=== PATIENT | female | born 1960 | race Caucasian/White ===

== ENCOUNTER 2016-10-03 07:54 | Day surgery (SDC) | payer BC ==
[~2016-10-03 07:54] MED LIST: ACETAMINOPHEN 1000MG/100 ML PREMIX IV ONE
[2016-10-03] MEDS ORDERED: BUPIVACAINE 0.25% MPF 30ML VIAL IVP ONE (13:47)
[2016-10-03] MEDS ORDERED: BETAMETHASONE 6 MG/1 ML 5ML VIAL IM ONE (13:47)
[2016-10-03] MEDS ORDERED: HYDROCODONE/APAP 7.5/325MG TABLET PO ONE (13:47)
[2016-10-03] MEDS ORDERED: PROPOFOL 10 MG/ML VIAL IV ONE (15:42)
[2016-10-03] MEDS ORDERED: FENTANYL PF 100MCG/2ML VIAL IV ONE (15:42)
[2016-10-03] MEDS ORDERED: ONDANSETRON HCL IV 4 MG/2 ML VIAL IVP ONE (15:42)
[2016-10-03] MEDS ORDERED: LIDOCAINE 2% MDV (20MG/ML) 20ML VIAL IV ONE (15:42)
[2016-10-03] MEDS ORDERED: SEVOFLURANE 250 ML INH ONE (15:42)
[2016-10-03] MEDS ORDERED: MIDAZOLAM HCL 2MG/2ML VIAL IV ONE (15:42)
[2016-10-03] MEDS ORDERED: KETOROLAC 30 MG/ML VIAL IVP ONE (15:42)
[2016-10-03] MEDS ORDERED: CEFAZOLIN 2 Gram 50 ML IVPB ONE (15:52)
--- NOTE | 2016-10-04 13:40 | Operative Note ---
DATE OF SURGERY: 10/03/2016 SURGEON: Francisco Finn DO REFERRING PHYSICIAN: Varun Craig DO PREOPERATIVE DIAGNOSES: 1. Right trigger thumb. 2. Soft tissue mass right thumb. 3. Osteoarthritis right knee. POSTOPERATIVE DIAGNOSES: 1. Right trigger thumb. 2. Osteophyte proximal phalanx of the right thumb. 3. Osteoarthritis right knee. OPERATION: 1. Tenotomy A1 hailey right thumb. 2. Excision of osteophyte of the proximal phalanx of the right thumb. 3. Injection right knee. Anesthesia: General. PROCEDURE: This 55-year-old female was taken to the operating room and placed in the supine position on the operating room table. General anesthesia was induced and the right knee was prepped with Betadine and a 22 gauge spinal needle was used to inject 2 mL of and 2 mL of 0.25% Marcaine plain, and a sterile bandage was applied. We then directed our attention to the right thumb and the right upper extremity was elevated, prepped with Hibiclens and draped in the usual sterile fashion, exsanguinated, and the tourniquet inflated to 250 mmHg. An incision was made in the flexor crease of the MCP joint of the right thumb and dissection was carried down through the skin and subcutaneous tissue. The proximal edge of the A1 hailey was easily identified and then with the entire hailey under direct vision, it was incised along its ventral border and the FPL completely exposed. The thumb was flexed to be sure there was no catching or locking. The tendon passed freely, and the wound was irrigated with lactated Ringer's solution. The wound closed with interrupted 6-0 nylon suture. Then, on the radial aspect of the right thumb, we made a longitudinal incision. This incision in the midline was carried down through the skin and subcutaneous tissue. We could palpate a mass on the radial aspect of the thumb and this was carried down to the joint capsule. We could see that this was below the joint capsule and subsequently the capsular incision was made and the capsule subperiosteally elevated off of the volar ulnar aspect of the distal phalanx to expose an osteophyte. This was then removed utilizing a rongeur, and we felt that this satisfactorily took care of the size of this mass. We also searched the subcutaneous tissues extensively for any ganglion, and nothing further was identified in that location. The wound was irrigated with lactated Ringer's solution and the joint capsule reapproximated with 4-0 Vicryl, and the skin closed with interrupted 6-0 nylon sutures. Sterile dressings were applied. The patient taken to the recovery room in satisfactory condition. GROSS PATHOLOGY: This patient had osteoarthritis of the right knee which is longstanding, and is well known. The patient had triggering of the right thumb with nodularity of the FPL, some excoriation and degeneration of the FPL tendon , some fraying of this tendon was identified. The patient also demonstrated an osteophyte of the volar ulnar aspect of the distal phalanx of the right thumb, creating a mass effect. This was removed in the manner described above. SINDI
== END 2016-10-03 11:10 | disposition home or self-care (01) ==
LOC: SUR 07:54
PROVIDERS: ATTEND Orthopaedic Surgery
DX: M65.311 Trigger thumb, right thumb (principal); M25.741 Osteophyte, right hand; M17.11 Unilateral primary osteoarthritis, right knee
CPT/HCPCS: 26055; 26160; 20610; 01810; J1885; J2405; J3010; J0690

== ENCOUNTER 2017-01-23 16:00 | Inpatient (IN) | payer BC ==
[2017-02-01] MEDS ORDERED: MECLIZINE 25 MG TABLET PO ONE (06:00)
[2017-02-01] MEDS ORDERED: FAMOTIDINE 20MG TABLET PO ONE (06:00)
[2017-02-01] MEDS ORDERED: ACETAMINOPHEN 1,000 MG/100 ML BTL IV ONE (06:00)
[2017-02-01] MEDS ORDERED: CLINDAMYCIN 600MG/50ML PREMIX 600 MG/50 ML BAG IVPB ONE (06:00)
[2017-02-01] MEDS ORDERED: METOCLOPRAMIDE 10 MG TABLET PO ONE (06:00)
[2017-02-01] MEDS ORDERED: TRAMADOL HCL 50 MG TABLET PO PRN ×2 (11:01)
[2017-02-01] MEDS ORDERED: ONDANSETRON HCL IV 4 MG/2 ML VIAL IVP PRN (11:01)
[2017-02-01] MEDS ORDERED: OXYCODONE HCL 5 MG TABLET PO PRN (11:01)
[2017-02-01] MEDS ORDERED: METOCLOPRAMIDE HCL 10 MG/2 ML VIAL IVP PRN (11:01)
[2017-02-01] MEDS ORDERED: AL HYDROX/MAG HYDROX 30ML UD PO PRN (11:01)
[2017-02-01] MEDS ORDERED: OXYCODONE/APAP 7.5MG/325MG TABLET PO PRN (11:01)
[2017-02-01] MEDS ORDERED: ZOLPIDEM TARTRATE 5 MG TABLET PO PRN (11:01)
[2017-02-01] MEDS ORDERED: MAGNESIUM HYDROXIDE 30 ML UDC PO PRN (11:01)
[2017-02-01] MEDS ORDERED: RINGERS SOLUTION,LACTATED 1,000 ML IV PRN (11:01)
[2017-02-01] MEDS ORDERED: DIPHENHYDRAMINE HCL 25 MG CAPSULE PO PRN (11:01)
[2017-02-01] MEDS ORDERED: TRANEXAMIC ACID 1,000 MG in 0.9 % SODIUM CHLORIDE 100ML 100 ML IV ONE (11:23)
[2017-02-01] MEDS ORDERED: LORAZEPAM 0.5 MG TABLET PO ONE (11:30)
[2017-02-01] MEDS ORDERED: PATIENT OWN MED: PO SCH (11:30)
[2017-02-01] MEDS ORDERED: CALCIUM CARBONATE 500 MG TAB.CHEW PO PRN (11:30)
[2017-02-01] MEDS ORDERED: ALBUTEROL HFA 8 GM INHALER INH PRN (11:30)
[2017-02-01] MEDS: SODIUM CHLORIDE IVPB SCH ×2 (13:17→22:17)
[2017-02-01] MEDS: ACETAMINOPHEN IVPB SCH ×2 (13:17→22:17)
[2017-02-01] MEDS ORDERED: BUPIVACAINE 0.25% W/EPI MPF 30ML VIAL IVP ONE (13:26)
[2017-02-01] MEDS ORDERED: BUPIVACAINE LIPOSOME 266MG/20ML VIAL IV ONE (13:26)
[2017-02-01] MEDS ORDERED: 0.9 % SODIUM CHLORIDE 100ML BAG IV ONE (13:26)
[2017-02-01] MEDS ORDERED: TRANEXAMIC ACID 1,000 MG/10 ML ML IV ONE (13:26)
[2017-02-01] MEDS: HYDROMORPHONE HCL 1 MG/ML CPJ IVP PRN ×3 (14:05→21:49)
[2017-02-01] MEDS ORDERED: LIDOCAINE 2% MDV (20MG/ML) 20ML VIAL IV ONE (14:23)
[2017-02-01] MEDS ORDERED: DIPHENHYDRAMINE HCL IV 50 MG/ML VIAL IVP ONE (14:23)
[2017-02-01] MEDS ORDERED: PROPOFOL 10 MG/ML VIAL IV ONE (14:23)
[2017-02-01] MEDS ORDERED: MIDAZOLAM HCL 2MG/2ML VIAL IV ONE (14:23)
[2017-02-01] MEDS ORDERED: FENTANYL PF 100MCG/2ML VIAL IV ONE (14:23)
[2017-02-01] MEDS: OXYCODONE HCL 5 MG TABLET PO PRN (15:46)
[2017-02-01] MEDS: CLINDAMYCIN 600MG/50ML PREMIX 600 MG/50 ML BAG IVPB SCH (16:03)
--- NOTE | 2017-02-01 16:19 | Rehab Evaluation ---
Patient Information - Patient Information Diagnosis: R Knee OA Ordered Treatment: PT Evaluate and Treat Status: Initial Evaluation Surgery: Yes (R TKA) Date of Surgery: 02/01/17 History: Detail (Pt. reports history of knee arthritis and pain. Pt. reports slowly progressive worsening of sx.) Past Med/Jose Daniel Hx Detail: Detail (Pt. reports L knee TKA ~1 year ago. Pt. reports R carpal tunnel release ~1 year ago. Please see attached PMH forms.) Past Medical/Surgical Hx: PAST MEDICAL/SURGICAL HISTORY Past Surgical History CTR hysterectomy; cholecystectomy; bilat knee scope; tonsillectomy; dequervains left wrist; arthroscopy left RTC repair ; left total knee 01-27-16; trigger thumb release10/03/16. PMH - Respiratory Hx Respiratory Disorders Yes Hx Asthma Yes Comment: hx sinus problems PMH - Cardiovascular Hx Cardiovascular Disorders No Hx Hypertension Yes: "whitecoat syndrome"-on no meds Exercise Tolerance Good Hx of Migraines Yes: monthly Comment: due to knee pain PMH - Neuro Hx Neurological Disorders Yes Hx Headaches Yes Hx Neuropathy Yes: left great toe numb since other total knee PMH - GI Hx Gastrointestinal Disorders Yes Hx Gastroesophageal Reflux Yes Hx Irritable Bowel Yes PMH - Hx Genitourinary Disorders No Hx Bladder Problem Yes: stress incontinence Comment: Hyst PMH - Endocrine Hx Endocrine Disorders No PMH - Musculoskeletal Hx Musculoskeletal Disorders Yes Hx Arthritis Yes: knees and hands Comment: wrist surgery PMH - Psych Hx Psychiatric Problems Yes Hx Anxiety Yes PMH - Hematology/Oncology Hx Hematology/Oncology Yes Disorders Hx Anemia Yes Premorbid Status: Detail (Pt. reports worsening of sx for the past year.) Social History: Detail (Pt. lives in a two story home with bathroom and bedroom located on the first floor. Pt. has 4 steps leading into the home with hand rail on the right when ascending. 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 Pt. has a grab bar in the shower, has access to front wheeled walker , and prefers to use her axillary crutches. Pt. lives at home with who is able to provide support.) Precautions: [place], Fall - Time With Patient Total Time Spent With Patient (Min): 35 Treatment Procedures: Detail (PT eval completed. Pt. was left supine with call light available, B IPC, cryo RLE, nursing was notified of pt.'s status.) Subjective Information - Subjective Information Per Patient (Pt. reported 5/10 pain at start of evaluation. Pt. denied SOB/ nausea, but did express some drowziness "secondary to benadryl".) Objective Data - Pain Pain Present: Yes Pain Scale Used: Numeric (1 - 10) - Mental Status Patient Orientation: Oriented x3 - Visual Perception Appears within normal limits for therapeutic activities - ROM Not within normal limits (R knee flexion limited due to pain. CPM set to 60 degrees flexion and 0 degrees extension. LLE within functional limits, as well as B hips.) - Strength/Tone Not within normal limits (Break testing not tolerated at the RLE due to pain. LLE within functional limits for safe transfer. BUE strength functional for bed mobility and transfers.) - Coordination Appears within normal limits for therapeutic activities - Bed Mobility Needs Assist (Pt. required assistance with positioning of the operative LE due to inability to perform SLR.) - Transfers Needs Assist (Pt. required min assist x1 to perform stand to sit transfer to bed and to perform stand<->sit from commode.) - Balance Balance Sitting: Good Balance Standing: Fair - Sensation Intact - Gait Detail (Not assessed due to standing at bedside orders.) - ADL's/IADL's Detail (Not assessed.) - Special Tests No Therapy Assessment - Therapy Assessment Detail (Pt. exhibits LE ROM and strength deficits secondary to knee replacement surgery. She is a good candidate to transition to home environment following inpatient stay after goal completion.) Patient Education - Patient Education Teaching Topic: Equipment Use, Precautions Response: Verbalize Understanding Teaching Method: Discussion Teaching Recipient: Patient Barriers To Learning: None Problem List - Problem List Physical Therapy Problem List: Detail (1) LE weakness 2) LE ROM restriction 3) Pt. not independent with bed mobility/transfers 4) Inability to assess ambulation) Goals - Goals Physical Therapy Goals: 1) Pt. will ambulate household distances independently with AD and will not demonstrate deviation from midline. 2) Pt. will be independent with bed mobility and transfers. 3) Pt. will verbalize understanding of precautions. 4) Pt. will be independent with the home program. 5) Pt. will ascend and descend 4 steps independently with AD for safe return to home environment. Prognosis - Prognosis Good (Pt. is expected to complete inpatient PT goals and D/C to home environment.) Plan - Plan Physical Therapy Plan: Pt. will be seen 1-2x per day for inpatient PT until goals have been achieved.
[2017-02-01] MEDS: FONDAPARINUX 2.5 MG/0.5 ML SYR SQ SCH (16:33)
[2017-02-01] MEDS: POLYETHYLENE GLY 17 GM PACKET PO SCH (22:30)
[2017-02-01] MEDS ORDERED: RIZATRIPTAN 10 MG PO PRN (22:30)
[2017-02-02] MEDS: CLINDAMYCIN 600MG/50ML PREMIX 600 MG/50 ML BAG IVPB SCH ×2 (00:17→07:01)
[2017-02-02] MEDS: OXYCODONE HCL 5 MG TABLET PO PRN (00:49)
[2017-02-02] MEDS: HYDROMORPHONE HCL 1 MG/ML CPJ IVP PRN ×2 (02:49→10:51)
[2017-02-02] MEDS: ACETAMINOPHEN IVPB SCH (03:41)
[2017-02-02] MEDS: SODIUM CHLORIDE IVPB SCH (03:41)
[2017-02-02 06:35] LABS: HEMATOCRIT 34.7 % (35.0-47.0); HEMOGLOBIN 10.7 gm/dl (11.6-16.0)
[2017-02-02] MEDS: OXYCODONE/APAP 7.5MG/325MG TABLET PO PRN ×2 (07:05→15:21)
[2017-02-02] MEDS ORDERED: LORATADINE 10 MG TABLET PO SCH (10:00)
[2017-02-02] MEDS ORDERED: SENNOSIDES/DOCUSATE SODIUM UD CAPSULE PO SCH (10:00)
[2017-02-02] MEDS: POLYETHYLENE GLY 17 GM PACKET PO SCH (10:49)
[2017-02-02] MEDS ORDERED: ACETAMINOPHEN 325 MG TAB PO PRN (11:16)
[2017-02-02] MEDS ORDERED: CELECOXIB 100 MG CAPSULE PO SCH (11:18)
--- NOTE | 2017-02-02 11:52 | Rehab Evaluation ---
Patient Information - Patient Information Diagnosis: R Knee OA Ordered Treatment: OT Evaluate and Treat Status: Initial Evaluation Surgery: Yes (R TKA) Date of Surgery: 02/01/17 History: Detail (Pt. reports history of knee arthritis and pain. Pt. reports slowly progressive worsening of sx.) Past Med/Jose Daniel Hx Detail: Detail (Pt. reports L knee TKA ~1 year ago. Pt. reports R carpal tunnel release ~1 year ago. Please see attached PMH forms.) Past Medical/Surgical Hx: PAST MEDICAL/SURGICAL HISTORY Past Surgical History CTR hysterectomy; cholecystectomy; bilat knee scope; tonsillectomy; dequervains left wrist; arthroscopy left RTC repair ; left total knee 01-27-16; trigger thumb release10/03/16. PMH - Respiratory Hx Respiratory Disorders Yes Hx Asthma Yes Comment: hx sinus problems PMH - Cardiovascular Hx Cardiovascular Disorders No Hx Hypertension Yes: "whitecoat syndrome"-on no meds Exercise Tolerance Good Hx of Migraines Yes: monthly Comment: due to knee pain PMH - Neuro Hx Neurological Disorders Yes Hx Headaches Yes Hx Neuropathy Yes: left great toe numb since other total knee PMH - GI Hx Gastrointestinal Disorders Yes Hx Gastroesophageal Reflux Yes Hx Irritable Bowel Yes PMH - Hx Genitourinary Disorders No Hx Bladder Problem Yes: stress incontinence Comment: Hyst PMH - Endocrine Hx Endocrine Disorders No PMH - Musculoskeletal Hx Musculoskeletal Disorders Yes Hx Arthritis Yes: knees and hands Comment: wrist surgery PMH - Psych Hx Psychiatric Problems Yes Hx Anxiety Yes PMH - Hematology/Oncology Hx Hematology/Oncology Yes Disorders Hx Anemia Yes Premorbid Status: Detail (Pt. reports worsening of sx for the past year. 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 lives in a two story home with bathroom and bedroom located on the first floor. Pt. has 4 steps leading into the home with hand rail on the right when ascending. 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 She will return to work February 26, 2017. Pt. has a grab bar in the shower, has access to front wheeled walker, and prefers to use her axillary crutches. Pt. lives at home with who is able to provide support. Pt has waterproof brace that will fit over incision allowing her to shower without incision becoming wet. She has a LH sponge.) Precautions: [employer], Fall - Time With Patient Total Time Spent With Patient (Min): 20 Treatment Procedures: Detail (OT eval LOW) Subjective Information - Subjective Information Per Patient Objective Data - Pain Pain Present: Yes Pain Intensity: 5 Pain Scale Used: Numeric (1 - 10) - Mental Status Patient Orientation: Oriented x3 - Visual Perception Appears within normal limits for therapeutic activities - ROM Within normal limits (BUE's) - Strength/Tone Within normal limits (BUE's) - Coordination Appears within normal limits for therapeutic activities - Transfers Independent (Sit<>stand) - ADL's/IADL's Detail (Pt educated on ADL equipment use. She does not anticipate needing any equipment and is familiar with drsg techniques from when she had her L knee sx. Pt demo'd independence with LB drsg and able to verbalize technique. Donned García socks ind. Uses a stool (which she has at home) to don socks. Spouse will be assisting with meal prep and drsg as needed.) Therapy Assessment - Therapy Assessment Detail (Pt verbalized understanding of drsg techniques and demo'd safety with drsg.) Patient Education - Patient Education Teaching Method: Discussion Teaching Recipient: Patient Barriers To Learning: None Problem List - Problem List Physical Therapy Problem List: Detail (1) LE weakness 2) LE ROM restriction 3) Pt. not independent with bed mobility/transfers 4) Inability to assess ambulation) Goals - Goals Physical Therapy Goals: 1) Pt. will ambulate household distances independently with AD and will not demonstrate deviation from midline. 2) Pt. will be independent with bed mobility and transfers. 3) Pt. will verbalize understanding of precautions. 4) Pt. will be independent with the home program. 5) Pt. will ascend and descend 4 steps independently with AD for safe return to home environment. Prognosis - Prognosis Good Plan - Plan Physical Therapy Plan: Pt. will be seen 1-2x per day for inpatient PT until goals have been achieved. Occupational Therapy Plan: No further inpatient OT needed at this time.
--- NOTE | 2017-02-02 12:03 | Physical Therapy Tx Note ---
Physical Therapy Tx Note - Treatment Note Tolerated: Good Total Time Spent With Patient: 25 Physical Therapy Tx Note: Detail (The patient was seen jointly with OT. The patient was independent with sit to stand i with use of crutches. The patient ambulated 40 feet x 1, toe touch weight bearing on the R LE with SBA for safety and verbal cues for proper weight bearing and gait pattern (WBAT). The patient required minimal PA with supine to sit and was independent with scooting up in bed with use of trapeze. The patient reported level 5 pain. Crutches were adjusted. Will see patient this pm for further gait training on levels and stairs.) Physical Therapy Problem List: Detail (1) LE weakness 2) LE ROM restriction 3) Pt. not independent with bed mobility/transfers 4) Inability to assess ambulation) Physical Therapy Goals: 1) Pt. will ambulate household distances independently with AD and will not demonstrate deviation from midline. 2) Pt. will be independent with bed mobility and transfers. 3) Pt. will verbalize understanding of precautions. 4) Pt. will be independent with the home program. 5) Pt. will ascend and descend 4 steps independently with AD for safe return to home environment. Physical Therapy Plan: Pt. will be seen 1-2x per day for inpatient PT until goals have been achieved.
--- NOTE | 2017-02-02 15:16 | Physical Therapy Tx Note ---
Physical Therapy Tx Note - Treatment Note Tolerated: Fair Total Time Spent With Patient: 25 Physical Therapy Tx Note: Detail (The patient ambulated with crutches 30 feet x 1 with toe touch weight bearing R LE (patient did WBAT with foot flat with maximal verbal cues. ) The patient ambulated on stairs with crutches with 3 trials and present. The patient was safe with last trial of stair climbing with crutches WBAT on the R LE and supervision for safety. The patient was indepedent with sit to and from stand transfer with crutches with occasional verbal cues for proper technique. The patient also required maximal verbal cues not to lean on crutches. The patient's HEP was reviewed. The patient and the patient's stated that they felt safe to go home. Safety precautions were reviewed at length ie: removing throw rugs and proper use of crutches . Use of walker was highly recommended for the first week.) Physical Therapy Problem List: Detail (1) LE weakness 2) LE ROM restriction 3) Pt. not independent with bed mobility/transfers 4) Inability to assess ambulation) Physical Therapy Goals: 1) Pt. will ambulate household distances independently with AD and will not demonstrate deviation from midline. 2) Pt. will be independent with bed mobility and transfers. 3) Pt. will verbalize understanding of precautions. 4) Pt. will be independent with the home program. 5) Pt. will ascend and descend 4 steps independently with AD for safe return to home environment. Physical Therapy Plan: The patient has met inpatient goals and is to continue PT as an outpatient.
[2017-02-02] MEDS: FONDAPARINUX 2.5 MG/0.5 ML SYR SQ SCH (15:20)
--- NOTE | 2017-02-05 09:51 | Operative Note ---
DATE OF SURGERY: 02/01/2017 Surgeon: Francisco Finn DO PREOPERATIVE DIAGNOSIS: Primary osteoarthritis of the right knee. POSTOPERATIVE DIAGNOSIS: Primary osteoarthritis of the right knee. OPERATION: Right total knee arthroplasty. DESCRIPTION OF PROCEDURE: This 56-year-old female was taken to the operating room and placed in the supine position on the operating room table. A spinal anesthesia was induced by the department of anesthesia. The right lower extremity was elevated. It was prepped with Hibiclens and draped in the usual sterile fashion. Exsanguinated and the tourniquet inflated to 300 mmHg. All scrub personnel wore personal isolation suits. A longitudinal anterior midline incision was made dissecting down through the skin and subcutaneous tissue. Hemostasis obtained with the electrocautery. A medial parapatellar arthrotomy incision was performed. An intracondylar drill hole was made for the intramedullary alignment christie and the distal femoral cutting block was pinned at 10 mm cut at 5 degrees valgus. Subsequently, the wafers of bone were removed and the sizing jig was affixed and a size 60 was seen to be the appropriate size. The 4-in-1 cutting block was then pinned in 3 degrees of external rotation and the appropriate cuts were made and the wafers of bone were removed. Subsequently, we directed our attention to the proximal tibia and an extramedullary alignment guide was used to cut the proximal tibia referencing a 10 mm cut off the lateral tibial plateau. After the appropriate rotation had been assured, a 3-degree posterior slope cut was made and the wafers of bone were removed. The remnants of the menisci and osteophytes were removed from the posterior aspect of the joint. The wound copiously irrigated with lactated Ringer's solution. The tibia was sized to a size 67 and a stem punch was used. Patella was cut and restored to anatomic height with a 31 x 8 mm patella. Trial components were inserted, and the 12 mm bearing was seen to give us the best stability with full range of motion. Patellofemoral joint was also stable. All trial components were removed. The posterior, lateral, and medial corners of the joint were injected with Exparel, and the remainder of the Exparel was injected into the proximal tibial periosteum joint capsule and distal femur after insertion of the final components. The wound copiously irrigated with pulse lavage, lactated Ringer's solution. The bony surfaces were dry and excess cement was removed from the insertion of each component after implantation. Initially a tibial baseplate was cemented into place followed by insertion of the tibial bearing. Subsequently the femoral component was cemented and finally the patella. The knee was again taken through range of motion with excellent stability, the components being identified. The drain was placed through a separate stab incision and the arthrotomy incision was closed with a #2 Vicryl, subcutaneous tissue closed with 0 Vicryl, and skin was stapled and sterile dressings were applied with a Polar Care. The patient was taken to the recovery room in satisfactory condition. GROSS PATHOLOGY: This patient demonstrated very severe patellofemoral and medial compartment osteoarthritis with full-thickness articular cartilage loss being noted. The lateral compartment also demonstrated grade 3 changes, especially on the lateral tibial plateau with more moderate grade 2 changes on the lateral femoral condyle. FINAL COMPONENTS INSERTED: A [employer]Mayela size 60 cruciate retaining femur, a size 67 tibial baseplate, a 12 mm anterior stabilized D1 bearing, and a 31 x 8 mm patella was used. CC: DO SINDI Bansal
--- NOTE | 2017-02-05 10:30 | Discharge Summary ---
DATE OF ADMISSION: 02/01/2017 DATE OF DISCHARGE: 02/02/2017 ADMISSION DIAGNOSIS: Osteoarthritis of the right knee. DISCHARGE DIAGNOSIS: Osteoarthritis of the right knee. OPERATIVE PROCEDURE: Elective right total knee arthroplasty. DESCRIPTION: This 56-year-old female was admitted to the hospital for total knee arthroplasty and tolerated the operative procedure well. She progressed satisfactorily with physical therapy and was discharged on the first postoperative day. The drain was removed. The wound appeared to be healthy with no sign of DVT. She will be discharged with the use of her OLIVIA hose to wear during the day. She may remove them at night. She will have outpatient physical therapy. She will take aspirin 325 mg b.i.d. for 2 weeks. She will also take Percocet 7.5/325 one or two every 6 hours as necessary for pain, and she was given 80. She will follow up in the office in 2 weeks. Routine wound care instructions were given. Should she have any problems prior to being seen, she was instructed to call my office. SINDI
== END 2017-02-02 15:45 | disposition home or self-care (01) | DRG 470 ==
LOC: MEDSURG 02-01 06:41
PROVIDERS: ADMIT Orthopaedic Surgery; ATTEND Orthopaedic Surgery
PROC: 0SRC0J9 Replacement of Right Knee Joint with Synthetic Substitute, Cemented, Open Approach (ICD-10-PCS; principal; 2017-02-01 09:00)
DX: M17.11 Unilateral primary osteoarthritis, right knee (principal); J45.909 Unspecified asthma, uncomplicated
CPT/HCPCS: 85014; 85018; 97116; 97165; 97530; J1170; J1200; J2405

== ENCOUNTER 2018-11-14 08:30 | Day surgery (SDC) | payer BC ==
[~2018-11-14 08:30] MED LIST changes: +ACETAMINOPHEN 1,000 MG/100 ML BTL IVPB ONE; -ACETAMINOPHEN 1000MG/100 ML PREMIX IV ONE; +CLINDAMYCIN 600MG/50ML PREMIX 600 MG/50 ML BAG IVPB ONE
[2018-11-14] MEDS ORDERED: LIDOCAINE 2% MDV (20MG/ML) 20ML VIAL IV ONE (08:31)
[2018-11-14] MEDS ORDERED: PROPOFOL 10 MG/ML VIAL IV ONE (08:31)
[2018-11-14] MEDS ORDERED: DEXAMETHASONE 4 MG/ML 1ML VIAL IVP ONE (08:31)
[2018-11-14] MEDS ORDERED: MIDAZOLAM HCL 2MG/2ML VIAL IV ONE (08:31)
[2018-11-14] MEDS ORDERED: FENTANYL PF 100MCG/2ML VIAL IV ONE (08:31)
[2018-11-14] MEDS ORDERED: ONDANSETRON HCL IV 4 MG/2 ML VIAL IVP ONE (08:31)
[2018-11-14] MEDS ORDERED: DESFLURANE 240 ML BTL INH ONE (08:31)
[2018-11-14] MEDS ORDERED: RINGERS SOLUTION,LACTATED 1,000 ML IV ONE (10:28)
[2018-11-14] MEDS ORDERED: TRAMADOL HCL 50 MG TABLET PO ONE (11:25)
--- NOTE | 2018-11-14 15:30 | Operative Note ---
DATE OF SURGERY: 11/14/2018 SURGEON: Francisco Finn DO PREOPERATIVE DIAGNOSIS: Carpal tunnel syndrome of the left wrist. POSTOPERATIVE DIAGNOSIS: Carpal tunnel syndrome of the left wrist. OPERATION: Decompression left median nerve of the wrist using 3.5 loop magnification. DESCRIPTION OF PROCEDURE: This 58-year-old female was taken to the operating room and placed in the supine position on the operating room table. General anesthesia was induced. The left upper extremity was elevated, prepped with Hibiclens, and draped in the usual sterile fashion. It was exsanguinated and the tourniquet inflated to 250 mmHg. A palmar incision was utilized following the hypothenar crease from the level of the base of the webspace of the thumb to the flexor crease of the wrist. Dissection was carried down through the skin and subcutaneous tissue. The palmar fascia was divided in line with the skin incision. The flexor retinaculum was identified, punctured, and then split to its proximal margin. Then, with the contents of the carpal tunnel under direct vision, the transverse carpal ligament was transected along its ulnar border. The radial flap was raised to expose the entire median nerve under the transverse carpal ligament. The nerve itself appeared to be normal other than the fact there was a more central position of the recurrent motor branch than is normally seen but the nerve was identified and protected during the operative procedure. The wound was irrigated and hemostasis obtained with the electrocautery. The wound closed with interrupted 6-0 nylon suture. Sterile dressings with plaster splint immobilization was applied with the wrist in slight dorsiflexion and the thumb in an adducted position. The patient was then taken to the recovery room in stable condition. CC: DO SINDI Bansal
== END 2018-11-14 11:52 | disposition home or self-care (01) ==
LOC: SUR 08:30
PROVIDERS: ATTEND Orthopaedic Surgery
DX: G56.02 Carpal tunnel syndrome, left upper limb (principal); E66.9 Obesity, unspecified
CPT/HCPCS: J2405; J7120